=== PATIENT | female | born 1980 | race Two or more races ===

== ENCOUNTER 2017-12-26 11:50 | Inpatient (IN) | payer OTHER ==
[2017-12-26] MEDS: LACTATED RINGER'S 1,000 ML IV ×3 (13:00→23:47)
[2017-12-26 13:16] LABS: ADD UMIC NO; UR ASCORBIC ACID 40 mg/dL (NEGATIVE); UR BILIRUBIN (Dip) NEGATIVE (NEGATIVE); UR BLOOD (Dip) NEGATIVE (NEGATIVE); UR CLARITY CLEAR (CLEAR); UR COLOR YELLOW (YELLOW); UR GLUCOSE (Dip) NEGATIVE (NEGATIVE); UR KETONES (Dip) NEGATIVE (NEGATIVE); UR LEUKOCYTE ESTERASE (Dip) NEGATIVE Leu/ul (NEGATIVE); UR NITRITE (Dip) NEGATIVE (NEGATIVE); UR SPECIFIC GRAVITY (Dip) 1.026 (1.003-1.030); UR TOTAL PROTEIN (Dip) NEGATIVE (NEGATIVE); UR UROBILINOGEN (Dip) 1+ mg/dL (NEGATIVE)
[2017-12-26] MEDS ORDERED: CARBOPROST 250 MCG INJ IM (15:30)
[2017-12-26] MEDS ORDERED: OXYTOCIN 30 UNITS/LR 500 ML IV (15:30)
[2017-12-26] MEDS ORDERED: MISOPROSTOL 200 MCG TAB PR (15:30)
[2017-12-26] MEDS ORDERED: METHYLERGONOVINE 0.2 MG INJ IM (15:30)
[2017-12-26 16:01] LABS: ADD MAN DIFF? NO
[2017-12-26 16:05] LABS: BASOPHILS % 0.2 % (0.0-2.0); EOSINOPHILS % 0.2 % (0.0-7.0); HEMATOCRIT 31.8 % (37.0-47.0); LYMPHOCYTES # 1.9 10^3/ul (0.8-2.9); LYMPHOCYTES % 23.4 % (15.0-51.0); MEAN CORPUSCULAR HEMOGLOBIN 31.3 pg (29.0-33.0); MEAN CORPUSCULAR HGB CONC 34.6 g/dl (32.0-37.0); MEAN CORPUSCULAR VOLUME 90.3 fl (82.0-101.0); MEAN PLATELET VOLUME 10.8 fl (7.4-10.4); MONOCYTE # 0.5 10^3/ul (0.3-0.9); MONOCYTES % 6.1 % (0.0-11.0); NEUTROPHIL # 5.7 10^3/ul (1.6-7.5); NEUTROPHILS % 69.5 % (39.0-77.0); PLATELET COUNT 164 10^3/UL (140-415); RED BLOOD COUNT 3.52 10^6/ul (4.20-5.40); RED CELL DISTRIBUTION WIDTH 13.2 % (11.5-14.5)
[2017-12-26 16:05] LABS: WHITE BLOOD COUNT 8.3 10^3/ul (4.8-10.8)
[2017-12-26 16:06] LABS: INR 0.88; PT RATIO 0.9
[2017-12-26 16:07] LABS: PARTIAL THROMBOPLASTIN TIME 25.9 Sec (25.0-35.0)
[2017-12-26] MEDS: BUTORPHANOL 2 MG INJ IV (16:07)
[2017-12-26] MEDS: AMPICILLIN 2 GM/NS (PMX) 100 ML IVPB (16:07)
[2017-12-26 16:55] LABS: HEPATITIS B SURFACE ANTIGEN NEGATIVE (NEGATIVE)
[2017-12-26] MEDS: AMPICILLIN 1 GM/NS (PMX) 50 ML IVPB ×2 (17:00→21:00)
[2017-12-26] MEDS ORDERED: morphine SULFATE/PF (10 MG/10 ML) INJ (19:29)
[2017-12-26] MEDS: ONDANSETRON 4 MG INJ IV ×2 (19:31→22:54)
[2017-12-26] MEDS: METOCLOPRAMIDE 10 MG INJ IV (19:31)
[2017-12-26] MEDS: CITRIC ACID/SODIUM CITRATE 15 ML CUP PO (19:32)
[2017-12-26] MEDS ORDERED: OXYTOCIN 10 UNIT INJ (19:35)
[2017-12-26] MEDS ORDERED: PROPOFOL 40 ML (20:34)
[2017-12-26] MEDS ORDERED: ONDANSETRON 4 MG INJ IV (21:00)
[2017-12-26] MEDS ORDERED: LABETALOL HCL 20MG INJ IV (21:00)
[2017-12-26] MEDS ORDERED: HYDROmorphONE (0.2 MG/ML) 10ML SYG IV ×3 (21:00)
[2017-12-26] MEDS ORDERED: NALOXONE (0.4 MG/ML) INJ IV (21:00)
[2017-12-26] MEDS ORDERED: morphine (1 MG/ML) 10ML SYRINGE IV ×3 (21:00)
[2017-12-26] MEDS ORDERED: DIPHENHYDRAMINE 50 MG INJ IV (21:00)
[2017-12-26] MEDS ORDERED: MEPERIDINE 25 MG INJ IV (21:00)
[2017-12-26] MEDS ORDERED: HYDROmorphONE 0.5 MG/0.5 ML SYG IV ×2 (21:00)
[2017-12-26] MEDS ORDERED: hydrALAzine 20 MG INJ IV (21:00)
[2017-12-26] MEDS ORDERED: METOCLOPRAMIDE 10 MG INJ IV (21:00)
[2017-12-26] MEDS ORDERED: ZOLPIDEM 5 MG TAB PO (21:00)
[2017-12-26 21:18] LABS: RAPID PLASMA REAGIN NONREACTIVE (NR)
[2017-12-26] MEDS: CEFAZOLIN 2 GM/50 ML (PMX) 50 ML IV (21:29)
[2017-12-26] MEDS: KETOROLAC 30 MG INJ IV (21:33)
[2017-12-26] MEDS: OXYTOCIN 30 UNITS/LR 500 ML IV (22:59)
[2017-12-27] MEDS ORDERED: METHYLERGONOVINE 0.2 MG INJ IM
[2017-12-27] MEDS ORDERED: LANOLIN 7 GM TUBE TOP
[2017-12-27] MEDS ORDERED: CARBOPROST 250 MCG INJ IM
[2017-12-27] MEDS ORDERED: MISOPROSTOL 200 MCG TAB PR
[2017-12-27] MEDS ORDERED: OXYTOCIN 30 UNITS/LR 500 ML IV
[2017-12-27] MEDS: OXYTOCIN 30 UNITS/LR 500 ML IV (04:37)
[2017-12-27 08:23] LABS: ADD MAN DIFF? NO
[2017-12-27 08:26] LABS: WHITE BLOOD COUNT 8.7 10^3/ul (4.8-10.8)
[2017-12-27 08:26] LABS: BASOPHILS % 0.1 % (0.0-2.0); HEMATOCRIT 26.3 % (37.0-47.0); HEMOGLOBIN 9.2 g/dl (12.0-16.0); LYMPHOCYTES % 11.2 % (15.0-51.0); MEAN CORPUSCULAR HEMOGLOBIN 31.5 pg (29.0-33.0); MEAN CORPUSCULAR VOLUME 90.1 fl (82.0-101.0); MEAN PLATELET VOLUME 10.3 fl (7.4-10.4); MONOCYTE # 0.4 10^3/ul (0.3-0.9); MONOCYTES % 4.8 % (0.0-11.0); NEUTROPHIL # 7.2 10^3/ul (1.6-7.5); NEUTROPHILS % 83.4 % (39.0-77.0); PLATELET COUNT 112 10^3/UL (140-415); RED BLOOD COUNT 2.92 10^6/ul (4.20-5.40); RED CELL DISTRIBUTION WIDTH 13.1 % (11.5-14.5)
[2017-12-27] MEDS: FERROUS SULFATE (EC) 325 MG TAB PO ×2 (14:00→21:48)
[2017-12-27] MEDS: SENNA/DOCUSATE NA (8.6MG/50MG) TAB PO ×2 (14:00→21:48)
[2017-12-27] MEDS: KETOROLAC 30 MG INJ IV ×2 (14:01→20:04)
[2017-12-27] MEDS: LACTATED RINGER'S 1,000 ML IV ×3 (14:01→23:47)
[2017-12-27] MEDS: IBUPROFEN 800 MG TAB PO (22:00)
[2017-12-28] MEDS: IBUPROFEN 800 MG TAB PO ×3 (05:51→21:32)
[2017-12-28] MEDS: LACTATED RINGER'S 1,000 ML IV (06:25)
[2017-12-28] MEDS: SENNA/DOCUSATE NA (8.6MG/50MG) TAB PO ×2 (09:27→21:32)
[2017-12-28] MEDS: FERROUS SULFATE (EC) 325 MG TAB PO ×3 (09:27→21:32)
[2017-12-28] MEDS: OXYCODONE/ACETAMINOPHEN (5/325) TAB PO ×2 (12:22→18:03)
[2017-12-29] MEDS: OXYCODONE/ACETAMINOPHEN (5/325) TAB PO ×3 (00:09→05:47)
[2017-12-29] MEDS: INFLUENZA VIRUS VACCINE 0.5 ML (DISPENSING) IM* (01:17)
[2017-12-29] MEDS: IBUPROFEN 800 MG TAB PO ×2 (05:14→14:29)
[2017-12-29] MEDS: FERROUS SULFATE (EC) 325 MG TAB PO ×2 (09:28→12:37)
[2017-12-29] MEDS: SENNA/DOCUSATE NA (8.6MG/50MG) TAB PO (09:28)
[2017-12-29] MEDS: DIPHTH/TET/ACEL PERTUSS (ADULT) 0.5 ML VIAL IM* (13:46)
== END 2017-12-29 16:40 | disposition home or self-care (01) | DRG 766 ==
LOC: OBT 11:50 → PP1 23:45 → L-D 11:52 → OBT 15:15 → L-D 15:15
PROC: 10D00Z1 Extraction of Products of Conception, Low, Open Approach (ICD-10-PCS; principal; 2017-12-26 18:30)
PROC: 3E033VJ Introduction of Other Hormone into Peripheral Vein, Percutaneous Approach (ICD-10-PCS; 2017-12-26 18:30)
DX: O32.1XX0 Maternal care for breech presentation, not applicable or unspecified (principal); Z37.0 Single live birth; Z3A.38 38 weeks gestation of pregnancy
CPT/HCPCS: 76818; 81003; 85025; 85460; 85610; 85730; 86592; 86850; 86900; 86901; 87340; 94760; 99464

== ENCOUNTER 2019-01-07 16:39 | Emergency (ER) | payer OTHER ==
[2019-01-07] MEDS: IBUPROFEN 800 MG TAB PO (20:40)
[2019-01-07 20:59] LABS: URINE PH (Dip) POC 5.5 (5.0-8.5)
[2019-01-07 20:59] LABS: URINE BLOOD (Dip) POC 2+ (NEGATIVE); URINE GLUCOSE (Dip) POC Negative (NEGATIVE); URINE KETONES (Dip) POC 2+ (NEGATIVE); URINE LEUKOCYTE EST (Dip) POC Negative (NEGATIVE); URINE NITRITE (Dip) POC Negative (NEGATIVE); URINE TOTAL PROTEIN POC 1+ (NEGATIVE)
[2019-01-07] MEDS: BENZONATATE 100 MG CAP PO (21:50)
== END 2019-01-07 22:00 | disposition home or self-care (01) ==
LOC: E/R 16:39
DX: J06.9 Acute upper respiratory infection, unspecified (principal); R07.9 Chest pain, unspecified
CPT/HCPCS: 71045; 81003; 81025; 93005; 99284-25